=== PATIENT | female | born 1940 | race Caucasian/White ===

== ENCOUNTER → 2016-08-03 | Outpatient (CLI) | payer OTHER, MEDICARE ==
[~2016-08-03] MED LIST: ALEVE220 MG PO; AMBIEN 5 MG TABL5 M1 PO; FISH OIL 1,001000 M2 PO; FOLIC ACID1 MG PO; HYZAAR 100-12.1 EACH PO; LEVAQUIN 500 M500 M2 PO; LEVOTHYROXIN0.137 M1 PO; METHOTREXATE 22.5 M1 PO; PREDNISONE 5 MG5 M1 PO; PRESERVISION A1 EACH PO; PRESERVISION T1 EACH PO; PRILOSEC 20 MG20 MG PO; TRINATE TABLET1 TAB PO; XANAX 0.5 MG0.5 MG PO; ZOLOFT100 MG PO
== END ==
LOC: RAD 14:24
DX: Z12.31 Encounter for screening mammogram for malignant neoplasm of breast (principal)